=== PATIENT | female | born 1985 | race Asian ===

== ENCOUNTER 2019-12-29 13:13 | Inpatient (IN) ==
[2019-12-29] MEDS ORDERED: OXYTOCIN 30 UNITS/500 ML BAG IV PRN ×2 (14:24→20:19)
[2019-12-29] MEDS ORDERED: BUTORPHANOL TARTRATE 1 MG/ML VIAL IV PRN (14:26)
--- NOTE | 2019-12-29 14:40 | History and Physical Report ---
DATE OF ADMISSION: 12/29/2019 CHIEF COMPLAINT: Nonreactive NST in the office, intrauterine at term, pain. HISTORY OF PRESENT ILLNESS: The patient is a 34-year-old 1, para 0. Her due date is 12/29/2019. She states she has been up since 2:00 a.m. this morning with waves of abdominal contractions, seen in the office for her to have a nonreactive NST, sent over for evaluation, placed on a monitor. heart rate tracing looked good. She also appears to be in active labor. Checked her, she was about a -1 station, membranes intact. Cervix 2 cm paper thin. ALLERGIES: No known drug allergies. PAST SURGICAL HISTORY: Had wisdom teeth removed. MEDICAL HISTORY: No history of rheumatic fever, heart disease, heart murmur, diabetes, tuberculosis. SOCIAL HISTORY: No smoking. No history of alcohol intake. Works at home. FAMILY HISTORY: Mom 70 in good health. Father 69 in good health. Half sister in good health. REVIEW OF SYSTEMS: HEAD: No symptoms of frequent or severe headaches. EARS: No symptoms of frequent ear infections, difficulty hearing. NOSE: No symptoms of frequent nosebleeds, difficulty breathing through her nose. PHYSICAL EXAMINATION: GENERAL: Well-developed, well-nourished 34-year-old female, alert, oriented x3 and cooperative and intermittent periods of distress. EYES: Conjunctivae are pink. Sclerae white. No evidence of jaundice. EARS, NOSE AND THROAT: Had normal light reflex bilaterally. NOSE: Had normal mucosa. Septum is midline. There were no polyps. THROAT: No erythema or evidence of infection. Teeth are in good state of repair. HEAD: Normocephalic, normal distribution of hair. NECK: Supple. Trachea midline. Thyroid is not enlarged, no adenopathy appreciated. ABDOMEN: Term size fetus. MUSCULOSKELETAL: No CVA tenderness, no calf tenderness. PELVIC: Cervix 100% effaced, 2 cm dilated, membranes intact, vertex presentation about a 0 station. IMPRESSIONS OF THIS CASE: Intrauterine at term, active labor.
[2019-12-29 14:50] LABS: Hematocrit (blood only) 36.5 % (37-47); Hemoglobin 11.9 g/dL (12.0-16.0); Mean Corpuscular Hemoglobin 29.8 pg (25-34); Mean Corpuscular Volume 91.5 fL (80-100); Mean Platelet Volume 10.1 fL (7.4-10.4); Platelet Count 262 K/uL (130-400); RDW Coefficient of Variation 14.3 % (11.5-14.5); RDW Standard Deviation 48.2 fL (36.4-46.3); Red Blood Count 3.99 M/uL (4.2-5.4); White Blood Count 12.39 K/uL (4.8-10.8)
[2019-12-29 15:05] LABS: Mean Corpuscular Hgb Conc 32.6 g/dL (32-36)
[2019-12-29] MEDS: LACTATED RINGER'S 1,000 ML IV PRN ×3 (15:26→23:33)
[2019-12-29] MEDS ORDERED: ePHEDrine sulfate 50 MG/ML AMP ONE (19:03)
[2019-12-29] MEDS ORDERED: BUPIVACAINE 0.25% 30 ML VIAL ONE (19:03)
[2019-12-29] MEDS ORDERED: fentaNYL citrate 100 MCG/2 ML VIAL ONE (19:03)
[2019-12-29] MEDS ORDERED: fentaNYL 2MCG/ML ROPIV 1.25MG/ML 100 ML BAG EPI ONE (19:04)
--- NOTE | 2019-12-29 19:22 | Anesthesiology Consultation ---
Date of Service December 29, 2019 Assessment & Plan (1) Encounter for pre-operative examination: Chart Review Chart Review: Patient NOT seen in Pre Admission Testing and Acceptable Risk for Labor Epidural Consults Requested none ASA ASA2 Proposed Anesthesia Anesthesia Type: Labor Epidural Risk / Benefits Reviewed With: PT / POA / Parent / Guardian, Accepts Plan and Informed Consent Obtained History Height/Weight Height: 5 ft 0.5 in Weight: 83.461 kg Allergies Allergy/AdvReac Type Severity Reaction Status Date / Time animal dander Allergy Hives Verified 12/29/19 13:32 grass pollen Allergy Hives Verified 12/29/19 13:32 house dust mite Allergy Hives Verified 12/29/19 13:32 mold Allergy Hives Verified 12/29/19 13:32 peanut Allergy Hives Verified 12/29/19 13:32 pollen extracts Allergy Hives Verified 12/29/19 13:32 ragweed pollen Allergy Hives Verified 12/29/19 13:32 shrimp Allergy Swelling Verified 12/29/19 13:32 of Lip/Tongue/Throat tree and shrub pollen Allergy Hives Verified 12/29/19 13:32 Medications Home Medications Medication Instructions Recorded Confirmed Last Taken PNV cmb#95-ferrous fumarate-FA 1 tab PO DAILY 12/29/19 12/29/19 12/29/19 12:00 [] Zyrtec 10 mg PO DAILY 12/29/19 12/29/19 12/28/19 18:00 Active Medications Generic Name Dose Route Start Last Admin Trade Name Freq PRN Reason Stop Dose Admin Lactated Ringer's 1,000 mls @ 125 mls/hr 12/29/19 14:24 12/29/19 19:28 Lr IV 12/31/19 14:23 125 mls/hr .Q8H PRN Infusion L&D Protocol Protocol NPO Date Last Intake of Fluids: 12/29/19 Time Last Intake of Fluids: 19:20 Date Last Intake of Solids: 12/29/19 Time Last Intake of Solids: 12:30 Past Medical History Medical History No known health problems Exercise / Class Metabolic Activity II 4-5 Yardwork/Stairs/Walk up hill Past Surgical History Surgical History [place] teeth removed Past Anesthesia History No Family Hx of Anesthesia Complications (Unkown) History of PONV Hx of Motion Sickness Social History Smoking Status: Never smoker Hx Alcohol Use: No Hx Substance Use: No Review of Systems Patient denies history of abnormal bleeding or bleeding disorder. Patient denies active use of anticoagulants other than low dose aspirin. Patient denies numbness, tingling or weakness in lower extremities. Negative for chest pain or shortness of breath. Physical Exam Vital Signs Last Vital Signs Temp 37.1 C 12/29/19 19:10 Pulse 77 12/29/19 20:01 Resp 18 12/29/19 19:10 BP 119/56 L 12/29/19 20:01 Pulse Ox 96 12/29/19 20:00 Constitutional not obese gravid uterus ENMT Mouth: no TMJ abnormality and oral opening not small Thyromental Distance: > or= 3.5 Finger Breadths Mallampati Class: II Neck normal visual inspection; neck extension not limited Respiratory normal respiratory effort, lungs clear to auscultation normal respiratory effort Auscultation: lungs clear to auscultation bilaterally Cardiovascular Rate/Rhythm: regular rate and regular rhythm Heart Sounds: no murmur Neurologic moves all extremities Motor/Sensory: no sensory deficit Psychiatric Orientation: alert and oriented x 3 Testing Laboratory Results 12/29/19 14:39
[2019-12-29] MEDS ORDERED: fentaNYL 2MCG/ML ROPIV 1.25MG/ML 100 ML BAG EPI PRN (20:04)
[2019-12-29] MEDS ORDERED: DiphenhydrAMINE HCL 50 MG/ML VIAL IV PRN (20:04)
[2019-12-29] MEDS ORDERED: NALOXONE HCL 0.4 MG/1 ML VIAL/CARP IV PRN (20:04)
[2019-12-29] MEDS ORDERED: ePHEDrine sulfate 50 MG/ML AMP IV PRN (20:04)
[2019-12-29] MEDS ORDERED: NALBUPHINE HCL INJ 10 MG/ML AMP IV PRN (20:04)
[2019-12-29] MEDS ORDERED: NALOXONE HCL 1 MG in SODIUM CHLORIDE 0.9% 1000ML 1,000 ML IV PRN (20:04)
[2019-12-29] MEDS ORDERED: ONDANSETRON INJ 2 MG/ML 2 ML VIAL IV PRN (20:04)
[2019-12-29] MEDS ORDERED: CETIRIZINE HCL 10 MG TABLET PO ONE (20:45)
[2019-12-30] MEDS: LACTATED RINGER'S 1,000 ML IV PRN (03:10)
[2019-12-30] MEDS ORDERED: METHYLERGONOVINE MALEATE 0.2 MG/ML AMP ONE (03:22)
[2019-12-30] MEDS ORDERED: ACETAMINOPHEN 325 MG TAB PO PRN (03:43)
[2019-12-30] MEDS ORDERED: HYDROCORTISONE ACETATE 25 MG SUPP PR PRN (03:43)
[2019-12-30] MEDS ORDERED: BENZOCAINE 20% AER SPR 82.5 GM CAN EXT PRN (03:43)
[2019-12-30] MEDS ORDERED: SUPERCREAM 0.870% 15 GM JAR EXT PRN (03:43)
[2019-12-30] MEDS ORDERED: DIPHTHERIA/TETANUS/PERTUSSIS 0.5 ML SYR/VIAL IM ONE (03:43)
[2019-12-30] MEDS ORDERED: ACETAMINOPHEN W/CODEINE #3 1 TAB PO PRN (03:43)
[2019-12-30] MEDS ORDERED: OXYCODONE/ACETAMINOPHEN 5mg/325mg TAB PO PRN (03:43)
[2019-12-30] MEDS ORDERED: bisacodyL 10 MG SUPP PR PRN (03:43)
[2019-12-30] MEDS ORDERED: OXYTOCIN 30 UNITS/500 ML BAG IV PRN (03:43)
[2019-12-30] MEDS: IBUPROFEN 600 MG TAB PO PRN ×3 (03:51→20:21)
--- NOTE | 2019-12-30 05:17 | Delivery Summary ---
DATE OF OPERATION: 12/30/2019 1, para 1. Blood type is O positive, group B strep negative. Was seen for nonreactive stress test in the office. States she had been up since 2:00 in the morning with pain. When she was admitted, she was about 2 cm, paper thin, little bit of bloody show. Eventually, she had a couple of days with doses of Stadol and then was given epidural. She got good pain relief. Membranes were ruptured surgically and she was augmented with IV Pitocin. Eventually, the Pitocin had to be turned off and she pushed out a live female infant via direct occiput anterior position over an intact perineum. Infant was suctioned through the mouth and nose. There was some meconium stained fluid noted at the time of delivery. Cord was clamped and cut. Cord blood was taken. With IV Pitocin running, the placenta was removed intact. She was also given 0.2 of IM Methergine. A second-degree laceration was noted down to the rectal sphincter capsule. The vaginal mucosa was approximated with a running 2-0 Vicryl out and to beyond the hymenal ring. A deep suture was used to approximate the bulbocavernosus muscles. Two interrupted sutures were used to bolster the sphincter capsule and then a deep suture was used to approximate the perineal body. Then a running subcuticular suture was used to approximate the perineal skin edges. Following this, vag exam revealed no sponges in the vagina. Hemostasis was good. Estimated blood loss was 300 mL. Apgars were deferred to the nurses. I attest to the content of the Intraoperative Record and any orders documented therein. Any exception s are noted below.
[2019-12-30] MEDS: DOCUSATE SODIUM 100 MG CAP PO SCH ×2 (07:52→20:22)
[2019-12-30] MEDS: PRENATAL VITAMIN 1 TAB PO SCH (07:52)
--- NOTE | 2019-12-30 08:41 | Anesthesia Procedure Note ---
Date of Service December 30, 2019 Anesthesia Post Epidural Note Vital Signs Vital Signs: Temp Pulse Resp BP Pulse Ox 36.8 C 81 20 98/64 L 98 12/30/19 06:10 12/30/19 06:10 12/30/19 06:10 12/30/19 06:10 12/30/19 06:10 Pain Intensity Episiotomy/Laceration: Pain Intensity: 0 Notes Mental Status: alert / awake / arousable and participated in evaluation Nausea / Vomiting: adequately controlled Pain: adequately controlled Airway Patency, RR, SpO2: stable & adequate BP & HR: stable & adequate Hydration State: stable & adequate Neuraxial Anesthesia: was administered and sensory block is resolving Anesthetic Complications: no major complications apparent and Pt Satisfied with anesthetic care Epidural: Removed without complications and With tip intact
[2019-12-30] MEDS: CETIRIZINE HCL 10 MG TABLET PO SCH (20:22)
[2019-12-31 06:08] LABS: Hematocrit (blood only) 29.2 % (37-47); Hemoglobin 9.6 g/dL (12.0-16.0); Mean Corpuscular Hemoglobin 30.3 pg (25-34); Mean Corpuscular Hgb Conc 32.9 g/dL (32-36); Mean Corpuscular Volume 92.1 fL (80-100); Mean Platelet Volume 9.8 fL (7.4-10.4); Platelet Count 231 K/uL (130-400); RDW Coefficient of Variation 14.6 % (11.5-14.5); RDW Standard Deviation 49.1 fL (36.4-46.3); Red Blood Count 3.17 M/uL (4.2-5.4); White Blood Count 18.22 K/uL (4.8-10.8)
[2019-12-31] MEDS: PRENATAL VITAMIN 1 TAB PO SCH (07:38)
[2019-12-31] MEDS: IBUPROFEN 600 MG TAB PO PRN ×3 (07:38→20:36)
[2019-12-31] MEDS: DOCUSATE SODIUM 100 MG CAP PO SCH ×2 (07:38→20:36)
--- NOTE | 2019-12-31 10:18 | Obstetrical Progress Note ---
Date of Service December 31, 2019 Assessment & Plan Admission and Anticipated Discharge Date Admission Date: December 29, 2019 Subjective Patient is seen and examined. She feels well, no complaints other than normal changes Ambulating without dizziness. Voiding without difficulty Tolerating regular diet with out N&V Bleeding is minimal No fever/ chills/ CP/ SOB/ N&V/ Leg pain Breast feeding without problems Vital Signs Temp Pulse Pulse Resp BP BP Pulse Ox 12/31/19 07:45 36.6 C 72 16 111/71 95 12/30/19 23:25 36.6 C 86 18 98/64 L 98 12/30/19 20:00 36.5 C 80 18 103/64 98 12/30/19 15:15 36.9 C 97 H 18 97/60 L 98 12/30/19 12:10 36.8 C 108 H 18 122/73 95 Intake and Output 12/30/19 12/31/19 12/31/19 22:59 06:59 14:59 Output Total 550 / 550 Balance -550 / -550 Output: Urine 550 / 550 Lab Results 12/29/19 12/31/19 Range/Units 14:39 05:40 WBC 12.39 H 18.22 H (4.8-10.8) K/uL RBC 3.99 L 3.17 L (4.2-5.4) M/uL Hgb 11.9 L 9.6 L (12.0-16.0) g/dL Hct 36.5 L 29.2 L (37-47) % MCV 91.5 92.1 (80-100) fL MCH 29.8 30.3 (25-34) pg MCHC 32.6 32.9 (32-36) g/dL RDW Std Deviation 48.2 H 49.1 H (36.4-46.3) fL RDW Coeff of Zain 14.3 14.6 H (11.5-14.5) % Plt Count 262 231 (130-400) K/uL MPV 10.1 9.8 (7.4-10.4) fL PE: General: Alert, orientedx3, NAD Abd: soft, NT, fundus firm, below Umbilicus Perineum intact, Lochia rubra minimal Ext; NT, no edema AP: 34 yo s/p , ppd# 1 VSS Afebrile doing well Continue routine care All questions were answered D/C home tomorrow Results & Data ([facility]) Vital Signs (Past 12 Hours) Vital Signs Temp Pulse Pulse Resp BP Pulse Ox 12/31/19 07:45 36.6 C 72 16 111/71 95 12/30/19 23:25 36.6 C 86 18 98/64 L 98
[2019-12-31] MEDS ORDERED: bisacodyL 5 MG TABEC PO SCH (20:00)
[2019-12-31] MEDS: CETIRIZINE HCL 10 MG TABLET PO SCH (20:37)
[2020-01-01 06:31] LABS: Basophils # (auto) 0.02 K/uL (0-0.2); Basophils % (auto) 0.1 %; Eosinophils % (auto) 1.4 %; Hematocrit (blood only) 29.7 % (37-47); Hemoglobin 9.5 g/dL (12.0-16.0); Immature Granulocytes # (auto) 0.11 K/uL (0.00-0.02); Immature Granulocytes % (auto) 0.8 %; Lymphocytes # (auto) 1.99 K/uL (1.2-3.4); Lymphocytes % (auto) 14.1 %; Mean Corpuscular Hemoglobin 29.5 pg (25-34); Mean Corpuscular Volume 92.2 fL (80-100); Mean Platelet Volume 9.8 fL (7.4-10.4); Monocytes # (auto) 0.71 K/uL (0.11-0.59); Neutrophils # (auto) 11.09 K/uL (1.4-6.5); Neutrophils % (auto) 78.6 %; Platelet Count 241 K/uL (130-400); RDW Coefficient of Variation 14.6 % (11.5-14.5); RDW Standard Deviation 49.1 fL (36.4-46.3); Red Blood Count 3.22 M/uL (4.2-5.4); White Blood Count 14.12 K/uL (4.8-10.8)
[2020-01-01] MEDS: IBUPROFEN 600 MG TAB PO PRN (08:22)
[2020-01-01] MEDS: PRENATAL VITAMIN 1 TAB PO SCH (08:22)
[2020-01-01] MEDS: DOCUSATE SODIUM 100 MG CAP PO SCH (08:22)
--- NOTE | 2020-01-01 09:57 | Obstetrical Progress Note ---
Date of Service January 01, 2020 Assessment & Plan Admission and Anticipated Discharge Date Admission Date: December 29, 2019 Subjective Patient is seen and examined. She feels better, no complaints. Ambulating without dizziness Voiding without difficulty Tolerating regular diet with out N&V Bleeding is minimal No fever/ chills/ CP/ SOB/ N&V/ Leg pain Breast feeding and had to supplement Vital Signs Temp Pulse Pulse Resp BP Pulse Ox 01/01/20 07:10 36.7 C 76 16 97/52 L 98 12/31/19 20:00 36.8 C 94 H 20 108/71 12/31/19 15:30 36.6 C 87 16 93/57 L 97 12/31/19 11:44 36.8 C 93 H 18 109/67 98 Lab Results 12/29/19 12/31/19 01/01/20 Range/Units 14:39 05:40 06:01 WBC 12.39 H 18.22 H 14.12 H (4.8-10.8) K/uL RBC 3.99 L 3.17 L 3.22 L (4.2-5.4) M/uL Hgb 11.9 L 9.6 L 9.5 L (12.0-16.0) g/dL Hct 36.5 L 29.2 L 29.7 L (37-47) % MCV 91.5 92.1 92.2 (80-100) fL MCH 29.8 30.3 29.5 (25-34) pg MCHC 32.6 32.9 32.0 (32-36) g/dL RDW Std Deviation 48.2 H 49.1 H 49.1 H (36.4-46.3) fL RDW Coeff of Zain 14.3 14.6 H 14.6 H (11.5-14.5) % Plt Count 262 231 241 (130-400) K/uL MPV 10.1 9.8 9.8 (7.4-10.4) fL Immature Gran % (Auto) 0.8 % Neut % (Auto) 78.6 % Lymph % (Auto) 14.1 % Gulf % (Auto) 5.0 % Eos % (Auto) 1.4 % Baso % (Auto) 0.1 % Immature Gran # (Auto) 0.11 H (0.00-0.02) K/uL Neut # (Auto) 11.09 H (1.4-6.5) K/uL Lymph # (Auto) 1.99 (1.2-3.4) K/uL Gulf # (Auto) 0.71 H (0.11-0.59) K/uL Eos # (Auto) 0.20 (0-0.5) K/uL Baso # (Auto) 0.02 (0-0.2) K/uL PE: General: Alert, orientedx3, NAD Abd: soft, NT, fundus firm, below Umbilicus Perineum intact, Lochia rubra minimal Ext; NT, trace pretibial edema, better than before AP: 34 yo s/p , ppd# 2 VSS Afebrile doing well Continue routine care All questions were answered Discussed when to call D/C home , f/u in office Results & Data ([facility]) Vital Signs (Past 12 Hours) Vital Signs Temp Pulse Resp BP Pulse Ox 01/01/20 07:10 36.7 C 76 16 97/52 L 98
[2020-01-01] MEDS ORDERED: MEASLES, MUMPS & RUBELLA VIRUS VIAL SQ ONE (11:33)
== END 2020-01-01 13:15 | disposition home or self-care (01) | DRG 807 ==
LOC: OPB 13:13 → 4S1 13:18 → 4S2 12-30 06:05

== ENCOUNTER 2025-01-14 16:45 | Inpatient (IN) ==
[2025-01-18] MEDS ORDERED: OXYTOCIN 30 UNITS/NSS 30 UNITS/500 ML BAG IV PRN (09:50)
[2025-01-18] MEDS ORDERED: LIDOCAINE 1% LOCAL 20 ML VIAL INFIL PRN (09:50)
--- NOTE | 2025-01-18 09:50 | Obstetrical Progress Note ---
Date of Service January 18, 2025 Assessment & Plan (1) : Plan: Met pt and family reviewed PNC Velamentous cord insertion bedside sono: Vt Ctx; minimal VE; /post +Ve GBS: starting antibx Admission and Anticipated Discharge Date Admission Date: January 18, 2025 Results & Data Vital Signs (Past 12 Hours) Vital Signs Temp Pulse BP 01/18/25 08:00 37.0 C 01/18/25 07:59 90 112/62
[2025-01-18 10:21] LABS: Hematocrit (blood only) 34.9 % (37.0-47.0); Hemoglobin 11.7 g/dl (12.0-16.0); Mean Corpuscular Hemoglobin 31.3 pg (25.0-34.0); Mean Corpuscular Hgb Conc 33.5 g/dL (32.0-36.0); Mean Corpuscular Volume 93.3 fL (80.0-100.0); Platelet Count 225 K/uL (130-400); RDW Coefficient of Variation 14.5 % (11.5-14.5); RDW Standard Deviation 48.5 fL (36.4-46.3); Red Blood Count 3.74 M/uL (4.20-5.40); White Blood Count 9.12 K/ul (4.8-10.8)
[2025-01-18] MEDS: miSOPROStoL 50 MCG TAB PO SCH ×2 (10:31→18:30)
[2025-01-18] MEDS: miSOPROStoL 50 MCG TAB ONE (17:01)
[2025-01-18] MEDS ORDERED: Nursing to Pharmacy Communication SCH (17:15)
--- NOTE | 2025-01-18 22:56 | Obstetrical Progress Note ---
Date of Service January 18, 2025 Assessment & Plan (1) : Plan: Pt doing well FHr ; CAT1 ctx 2-4min Received 4 doses of Cytotec Ctx too close for another Cytotec or Cervidil plan proceed with Pitocin augmentation pt agreeable to plan Admission and Anticipated Discharge Date Admission Date: January 18, 2025 Results & Data Vital Signs (Past 12 Hours) Vital Signs Temp Pulse BP 01/18/25 19:36 77 108/65 01/18/25 15:44 37.1 C 01/18/25 15:43 73 106/55 L 01/18/25 11:31 37.0 C 76 107/56 L
[2025-01-19] MEDS: LACTATED RINGER'S 1,000 ML IV PRN (00:46)
[2025-01-19] MEDS: PENICILLIN GK 6 MU in DEXTROSE 5% 250 ML IV STA (00:47)
[2025-01-19] MEDS: OXYTOCIN 30 UNITS/NSS 30 UNITS/500 ML BAG IV PRN (00:48)
[2025-01-19] MEDS: FERROUS SULFATE 325 MG TAB PO ONE (02:29)
[2025-01-19] MEDS: ASCORBIC ACID 500 MG TAB PO ONE (02:29)
[2025-01-19] MEDS: PENICILLIN GK 3 MU in DEXTROSE 5% 100 ML IV PRN (05:20)
[2025-01-19] MEDS: LIDOCAINE 2%/EPINEPHRINE 1:200,000 20 ML PF ONE (07:30)
[2025-01-19] MEDS: BUPIVACAINE 0.25% PF 30 ML VIAL ONE (07:30)
[2025-01-19] MEDS: fentANYL 2 MCG/ML BUPIVacaine 0.125%-NSS 100ML BAG ONE (07:40)
--- NOTE | 2025-01-19 07:50 | Anesthesiology Consultation ---
Date of Service January 19, 2025 Assessment & Plan Chart Review Chart Review: Acceptable Risk for Labor Epidural Consults Requested none History Height/Weight Weight: 86.183 kg Allergies Allergy/AdvReac Type Severity Reaction Status Date / Time animal dander Allergy Hives Verified 12/29/19 13:32 grass pollen Allergy Hives Verified 12/29/19 13:32 house dust mite Allergy Hives Verified 12/29/19 13:32 mold Allergy Hives Verified 12/29/19 13:32 peanut Allergy Hives Verified 12/29/19 13:32 pollen extracts Allergy Hives Verified 12/29/19 13:32 ragweed pollen Allergy Hives Verified 12/29/19 13:32 shrimp Allergy Swelling Verified 12/29/19 13:32 of Lip/Tongue/Throat tree and shrub pollen Allergy Hives Verified 12/29/19 13:32 Medications Home Medications Medication Instructions Recorded Confirmed Last Taken cetirizine 10 mg tablet 10 mg PO HS 01/18/25 01/18/25 01/18/25 ferrous sulfate 325 mg (65 mg 325 mg PO DAILY 01/18/25 01/18/25 01/18/25 iron) tablet (iron) vits no.124-ferrous fum 1 tab PO HS 01/18/25 01/18/25 01/17/25 27 mg iron-folic acid 800 mcg tablet ( Vitamin) pyridoxine (vitamin B6) 25 mg 25 mg PO DAILY 01/18/25 01/18/25 01/18/25 tablet (Vitamin B-6) Active Medications Generic Name Dose Route Start Last Admin Trade Name Freq PRN Reason Stop Dose Admin Lactated Ringer's 1,000 mls @ 125 mls/hr 01/18/25 09:50 01/19/25 07:25 Lr IV 01/20/25 09:49 125 mls/hr .Q8H PRN Infusion L&D Protocol Protocol Penicillin G Potassium 3 mu/ 106 mls @ 100 mls/hr 01/18/25 12:50 01/19/25 05:20 Dextrose IV 01/28/25 12:49 100 mls/hr Q4H PRN Administration GBS(+) Until Delivery Oxytocin 30 units in 500 mls @ 6 mls/hr 01/18/25 22:51 01/19/25 07:02 Pitocin 30 Units/Nss IV 01/20/25 22:50 0.36 units/hr .Q24H PRN 6 mls/hr Labor Induction/Augmentation Titration Protocol 0.36 UNITS/HR Past Medical History Medical History (Updated 01/18/25 @ 09:49 by Jm Gambino MD) No known health problems Past Surgical History Surgical History [place] teeth removed Social History Smoking Status: Never smoker Hx Alcohol Use: No Hx Substance Use: No Physical Exam Vital Signs Last Vital Signs Temp 37.0 C 01/19/25 04:44 Pulse 70 01/19/25 07:46 Resp 18 01/19/25 04:44 BP 104/53 L 01/19/25 07:39 Pulse Ox 98 01/19/25 07:46 Testing Laboratory Results 01/18/25 10:05
[2025-01-19] MEDS ORDERED: LIDOCAINE 2% MPF LOCAL 5 ML VIAL EPI PRN (07:52)
[2025-01-19] MEDS ORDERED: diphenhydrAMINE 50 MG/ML VIAL IV PRN (07:52)
[2025-01-19] MEDS ORDERED: ROPIVACAINE 0.5% PF 5 MG/ML 20 ML VIAL EPI PRN (07:52)
[2025-01-19] MEDS ORDERED: BUPIVACAINE 0.25% PF 30 ML VIAL EPI PRN (07:52)
[2025-01-19] MEDS ORDERED: NALOXONE HCL 0.4 MG/1 ML VIAL/CARP IV PRN (07:52)
[2025-01-19] MEDS ORDERED: NALOXONE HCL 1 MG in SODIUM CHLORIDE 0.9% 1,000 ML IV PRN (07:52)
[2025-01-19] MEDS ORDERED: SODIUM CHLORIDE 0.9% PF INJ 10 ML VIAL EPI PRN (07:52)
[2025-01-19] MEDS ORDERED: NALBUPHINE HCL INJ 10 MG/ML AMP IV PRN (07:52)
[2025-01-19] MEDS ORDERED: ePHEDrine sulfate 50 MG/ML AMP IV PRN (07:52)
[2025-01-19] MEDS ORDERED: fentaNYL citrate PF 100 MCG/2 ML VIAL EPI PRN (07:52)
[2025-01-19] MEDS ORDERED: fentANYL 2 MCG/ML BUPIVacaine 0.125%-NSS 100ML BAG EPI PRN (07:52)
--- NOTE | 2025-01-19 07:57 | Obstetrical Progress Note ---
Date of Service January 19, 2025 Assessment & Plan (1) : Plan: Pt doing well Epidural analgesia in Place VE; 9/80/0station Ctx 1-3min On Pitocin AROM with amnio hook -Clear fluid anticpate VD Admission and Anticipated Discharge Date Admission Date: January 18, 2025 Results & Data Vital Signs (Past 12 Hours) Vital Signs Temp Pulse Resp BP Pulse Ox 01/19/25 07:51 69 100 01/19/25 07:46 70 98 01/19/25 07:41 71 98 01/19/25 07:39 61 104/53 L 01/19/25 07:37 56 L 104/53 L 01/19/25 07:36 58 L 97 01/19/25 07:33 65 119/62 01/19/25 07:31 69 99 01/19/25 07:30 73 117/68 01/19/25 07:26 60 99 01/19/25 07:22 94 H 91 01/19/25 07:21 91 H 99 01/19/25 07:16 88 97 01/19/25 07:14 60 107/62 01/19/25 06:43 64 115/67 01/19/25 04:51 78 100/61 01/19/25 04:44 18 01/19/25 04:44 37.0 C 18 01/19/25 03:50 61 97/55 L 01/19/25 02:52 69 110/58 L 01/19/25 02:51 65 107/54 L 01/19/25 01:52 65 100/55 L 01/19/25 00:46 77 109/58 L 01/19/25 00:04 36.9 C 69 18 119/56 L
[2025-01-19] MEDS: SODIUM CHLORIDE 0.9% PF INJ 10 ML VIAL ONE (07:59)
[2025-01-19] MEDS: fentaNYL citrate PF 100 MCG/2 ML VIAL EPI STA (08:37)
[2025-01-19] MEDS: BUPIVACAINE 0.25% PF 30 ML VIAL EPI STA (08:37)
[2025-01-19] MEDS: LIDOCAINE 2%/EPINEPHRINE 1:200,000 20 ML PF EPI STA (08:37)
[2025-01-19] MEDS: SODIUM CHLORIDE 0.9% PF INJ 10 ML VIAL EPI STA (08:37)
[2025-01-19] MEDS: fentaNYL citrate PF 100 MCG/2 ML VIAL ONE (08:39)
[2025-01-19] MEDS: METHYLERGONOVINE MALEATE 0.2 MG/ML AMP IM ONE (11:00)
--- NOTE | 2025-01-19 11:32 | Delivery Summary ---
Vaginal Delivery Summary Date of Service January 19, 2025 Vaginal Delivery Summary Patient is followed in the office for care and delivery. Patient well- documented due date with first trimester ultrasound. Patient was brought in at 40 weeks gestation for induction of labor secondary to velamentous insertion of the cord. Patient was given p.o. Cytotec followed by IV Pitocin. Patient received epidural for pain control. Patient went to full dilatation delivered a live female infant via direct occiput anterior position over an intact perineum. was suctioned through the mouth and the nose. Shoulders were delivered without difficulty. Cord was allowed to pulse for 1 full minute. Cord was then clamped cut by the father. Cord blood was taken. With IV Pitocin running the placenta was removed intact. IV Pitocin and IM Methergine was used to control the bleeding. Inspection of the perineum revealed a second-degree laceration. The vaginal mucosa was approximated out and to beyond the hymenal ring with a running 2-0 Vicryl. A deep suture of 2-0 Vicryl was used to approximate the bulbocavernosus muscle. 2 separate sutures were used approximate the perineal body. Then a running subcuticular suture was used to approximate the perineal skin edges. Quantitative blood loss was 250 mL. Patient tolerated delivery well.
--- NOTE | 2025-01-19 12:19 | Anesthesia Procedure Note ---
Date of Service January 19, 2025 Anesthesia Post Epidural Note Vital Signs Vital Signs: Temp Pulse Resp BP Pulse Ox 36.8 C 88 16 94/52 L 97 01/19/25 09:15 01/19/25 12:16 01/19/25 09:15 01/19/25 12:10 01/19/25 12:16 Notes Mental Status: alert / awake / arousable Nausea / Vomiting: adequately controlled Pain: adequately controlled Airway Patency, RR, SpO2: stable & adequate BP & HR: stable & adequate Hydration State: stable & adequate Neuraxial Anesthesia: was administered and sensory block is resolving Anesthetic Complications: no major complications apparent and Pt Satisfied with anesthetic care Epidural: Removed without complications and With tip intact
[2025-01-19] MEDS: ePHEDrine sulfate 50 MG/ML AMP ONE (12:24)
[2025-01-19] MEDS ORDERED: oxyCODONE/ACETAMINOPHEN 5mg/325mg TAB PO PRN (12:31)
[2025-01-19] MEDS ORDERED: bisacodyL 10 MG SUPP PR PRN (12:31)
[2025-01-19] MEDS ORDERED: ACETAMINOPHEN W/CODEINE #3 1 TAB PO PRN (12:31)
[2025-01-19] MEDS ORDERED: OXYTOCIN 30 UNITS/NSS 30 UNITS/500 ML BAG IV PRN (12:31)
[2025-01-19] MEDS ORDERED: DIPHTHER/TETAN/PERTUS Vaccine (Tdap, Adol/Adult) 0.5mL IM ONE (12:31)
[2025-01-19] MEDS ORDERED: HYDROCORTISONE ACETATE 25 MG SUPP PR PRN (12:31)
[2025-01-19] MEDS: IBUPROFEN 600 MG TAB PO PRN ×2 (13:52→20:41)
[2025-01-19] MEDS: ACETAMINOPHEN 325 MG TAB PO PRN (15:38)
[2025-01-19] MEDS: BENZOCAINE 20% SPRY 85 APPLN/85 GM CAN EXT PRN (15:39)
[2025-01-19] MEDS: DOCUSATE SODIUM 100 MG CAP PO SCH (21:51)
[2025-01-19] MEDS: ASCORBIC ACID 500 MG TAB PO SCH (22:34)
[2025-01-19] MEDS: FERROUS SULFATE 325 MG TAB PO SCH (22:34)
[2025-01-20 06:28] LABS: Hematocrit (blood only) 31.3 % (37.0-47.0); Hemoglobin 10.4 g/dl (12.0-16.0); Mean Corpuscular Hemoglobin 31.7 pg (25.0-34.0); Mean Corpuscular Hgb Conc 33.2 g/dL (32.0-36.0); Mean Corpuscular Volume 95.4 fL (80.0-100.0); Mean Platelet Volume 10.3 fL (9.4-12.4); Platelet Count 171 K/uL (130-400); RDW Coefficient of Variation 14.5 % (11.5-14.5); Red Blood Count 3.28 M/uL (4.20-5.40); White Blood Count 13.08 K/ul (4.8-10.8)
[2025-01-20 07:52] VITALS: RESP 16
--- NOTE | 2025-01-20 08:50 | Obstetrical Progress Note ---
Date of Service January 20, 2025 Assessment & Plan (1) Normal course: Present on Admission?: No Plan Continue routine course Regular diet encourage ambulation discharge plan for tomorrow Admission and Anticipated Discharge Date Admission Date: January 18, 2025 Review of Systems Review of Systems: All systems reviewed & are unremarkable except as noted in HPI & below Constitutional: as per Subjective / HPI Respiratory: as per Subjective / HPI Cardiovascular: as per Subjective / HPI Gastrointestinal: as per Subjective / HPI Genitourinary: as per Subjective / HPI Physical Exam Constitutional: WD/WN, vitals as above Respiratory: normal respiratory effort, lungs clear to auscultation Cardiovascular: RRR, no murmur, no edema Gastrointestinal (Abdomen): normal bowel sounds, soft, nontender, no hepatosplenomegaly Skin: no rashes, warm and dry Psychiatric: A+Ox3, euthymic affect Genitourinary: pelvic Exam: deferred Normal lochia Results & Data Vital Signs (Past 12 Hours) Vital Signs Temp Pulse Resp BP Pulse Ox O2 Del Method 01/20/25 07:26 36.5 C 69 16 94/58 L 96 Room Air 01/20/25 03:10 36.9 C 71 18 102/66 97 Room Air 01/19/25 23:15 36.6 C 63 16 98/61 L 96 Room Air
[2025-01-20] MEDS: PRENATAL VITAMIN 1 TAB PO SCH (09:16)
[2025-01-20 15:59] VITALS: BP 93/56; PULSE 80; TEMP 97.7; O2SAT 97
--- NOTE | 2025-01-20 17:42 | Discharge Summary ---
Date of Service January 20, 2025 Admission HPI Per Admitting Provider The patient is a 34-year-old 1, para 0. Her due date is 12/29/2019. She states she has been up since 2:00 a.m. this morning with waves of abdominal contractions, seen in the office for her to have a nonreactive NST, sent over for evaluation, placed on a monitor. heart rate tracing looked good. She also appears to be in active labor. Checked her, she was about a -1 station, membranes intact. Cervix 2 cm paper thin. Admission Exam (Per Admitting) Constitutional WD/WN, vitals as above Hospital Course (1) Vaginal delivery: Plan discharge home follow up in 3weeks and 6 weeks for visit Continue [place], [facility] Discharge Instructions ACTIVITY RECOMMENDATIONS: * Gradual return to full activity over the next 2-3 weeks. * No lifting - nothing heavier than baby over the next 2-3 weeks. * Do not engage in vigorous exercise, sexual activity or sports until cleared by your physician. * Do not drive or operate any motorized equipment until cleared by your physician. * You may shower/bathe daily. BREAST CARE: If you are not breast feeding: * Wear a supportive bra 24 hours a day for one to two weeks. * Avoid stimulating your breasts and nipples as much as possible during the first few weeks after delivery. * When taking a shower, have the warm water hit your back, not breasts. * When your breasts feel full, apply ice packs. Usually three to four times a day helps ease the discomfort. * Take a mild pain medication (Tylenol/Motrin) when you are uncomfortable. If breast feeding: * Use breast milk to lubricate nipples. Lansinoh cream may be used for sore nipples. You do not need to remove cream prior to breast feeding. If using a different brand of cream, check the label for directions regarding removal of cream prior to nursing. * Wear a supportive bra. * If having problems with breasts or breast feeding, call a risk assessment consultant or your health care provider. EPISIOTOMY CARE: After delivery, if you have an episiotomy (stitches), the following steps will ease discomfort and aid healing. * For the first 24 hours after delivery, place ice packs next to your episiotomy to help reduce swelling. * After the first 24 hour-period, sitz baths, either portable or in the tub, are suggested. A shower with a shower arm sprayed over the episiotomy may be comforting. * Lucy care should be done after each voiding and bowel movement. Squirt warm water from a plastic bottle over the perineum (region of the body between the anus and urinary opening) and pat dry. * Use Dermoplast to ease discomfort. Shake container. [place] directly over the episiotomy. * Place a Tucks on a clean sanitary pad next to your episiotomy. OVER THE COUNTER MEDICATION: * For discomfort or pain, you may use Acetaminophen (Tylenol), Ibuprofen (Advil), or Naproxen (Aleve) following the package directions. * For constipation you may use Colace following the package directions. SPECIAL CARE INSTRUCTIONS: When you are discharged from the hospital, it is important for you to follow the instructions listed below: * During the first week at home, you should be able to care for yourself and your baby. In addition, the usual light household activities are encouraged. * Limit your activities to the way you feel. Do not try to clean the house or move furniture. Be sensible. * If you actively engage in sports and have done so up until the time of your delivery, you may resume these activities as soon as you feel able. This may take up to one month or even longer. Use good judgment. * Continue to take your vitamins for at least six weeks after the of your baby. * Your diet need not be limited unless you were on a special diet before your delivery. Breast-feeding mothers need around 2500 calories per day and at least 64-80 ounces of fluid per day (8 to 10 glasses). * You should eat foods from the four major food groups. Crash diets or fad diets are to be avoided. Eating lean meats, fresh fruits and vegetables, low-fat dairy products, high fiber foods and a regular exercise program, will help you get back to your pre- weight without putting your health at risk. * Constipation is sometimes a problem after delivery. Take a mild laxative as needed. If breast feeding, Milk of Magnesia is acceptable to use. You may use a suppository or Fleets enema if no episiotomy. * A daily shower or tub bath is suggested. Be sure to thoroughly and gently dry the perineum. * A bloody vaginal discharge will usually continue until around four weeks post . A small amount of bleeding may continue for as long as six weeks. Vaginal discharge changes from the bright red bleeding after delivery to pink then brownish and finally yellowish-pink before becoming white and disappearing. * Bleeding may increase with activity. Your first period may come in 4-8 weeks. If you are breast feeding, your period may be delayed even longer. * [place] (sex) can begin whenever both you and your partner feel comfortable and do not have any form of genital infection. It is recommended that you wait until after your return appointment and discuss with your p hysician. If you have questions, please talk to your health care practitioner. A condom should be used to prevent infection and . * Foreplay, gentle intercourse and lubrication is very important the first several times to prevent pain. A water-based lubricant such as K-Y jelly or Astroglide may be used. * Tampons may be used six weeks after delivery. * Douching should be avoided for 6 weeks after delivery. * If you have RH negative blood and your baby is RH positive, you will receive RHOGAM by injection prior to discharge. The nurse will give you a card to keep with you that has the date and place that you received RHOGAM after delivery. * During your care, you had a Rubella screen done to check for the presence of rubella antibodies in your blood. If your test was negative, you will receive a Rubella vaccine prior to discharge. This vaccine may cause a fever, soreness at the injection site and flu-like symptoms. If these symptoms persist, notify your health care practitioner. is not advised for three months after a Rubella vaccine. There is a higher chance of having a baby with defects if conceived within three months of getting the vaccine. * If you were discharged 24 hours from delivery or before 48 hours: Visiting nurses will come to your home 48 hours after discharge to assess you and your baby. The visiting nurse will meet with you while you are in the hospital to arrange a time and get directions to your home. * Verbalizes understanding of car seat law as reviewed with patient nursing. * Car Seat hand-out given and reviewed with patient by nursing. * Shaken baby information reviewed with patient by nursing. Call you doctor if: * Heavy bleeding (saturating several pads an hour) or passing clots the size of your fist. * A fever >101 degrees F (38.3 degrees C) on two occasions four hours apart and/or chills. * Unusual pain in the pelvic or vaginal areas. * "Baby Blues" lasting longer than two weeks. If you have any questions or concerns, call your health care practitioner at . FOLLOW-UP VISIT: * Please call the office at to schedule 3 and 6 week examination. It is important you keep this appointment. * It is important for you to make arrangements for either yearly or twice yearly check-ups thereafter.
[2025-01-20] MEDS ORDERED: bisacodyL 5 MG TABEC PO SCH (20:00)
== END 2025-01-20 20:11 | disposition home or self-care (01) | DRG 807 ==
LOC: 4S1 01-18 07:48 → 4E2 01-19 15:25